=== PATIENT | male | born 1995 | race Caucasian/White ===

== ENCOUNTER 2024-05-15 13:44 | Emergency (ER) | payer BC, OTHER ==
--- NOTE | 2024-05-15 14:28 | RAD REPORT ---
EXAMINATION: XR RIGHT WRIST CLINICAL INDICATION: R wrist injury RIGHT TECHNIQUE: Multiple projections of the right wrist were obtained. COMPARISON: No prior exam. FINDINGS: Mildly comminuted intra-articular fracture of the distal radius is present. No dislocation is evident.
[2024-05-15] MEDS ORDERED: KETOROLAC 30 MG/ML INJ ONE (14:30)
--- NOTE | 2024-05-15 14:30 | EDPHYS ---
Physician Documentation [facility] Name: Marcos Tracey Age: 28 yrs Sex: Male : 1995 Arrival Date: 05/15/2024 Time: 13:44 Bed 9 Private MD: ED Physician Villa Muniz HPI: 05/15 14:00 This 28 yrs old Male presents to ER via Ambulatory with complaints of Fall ec2 Injury, Hand Injury - right. 14:00 Patient arrives today for right wrist pain after GLF. No other concerns.. ec2 Historical: - Allergies: 13:59 No Known Allergies; ld1 - PMHx: 13:59 None; ld1 - PSHx: 13:59 None; ld1 - Immunization history:: Adult Immunizations up to date. - Infectious Disease History:: Denies. - Social history:: Smoking status: Patient denies any tobacco usage or history of. ROS: 14:00 Constitutional: as per hpi ec2 Exam: 14:00 Constitutional: GEN: NAD Head: atraumatic Eyes: EOMI Ears: External ears are ec2 normal. CV: regular rate LUNGS: no respiratory distress ABD: non-distended SKIN: no evidence of rashes MSK: Right wrist with TTP, intact radial pulse, intact movement sensation of the hand. Vital Signs: 13:58 Pulse 86; Resp 18; Temp 97.2(TE); Pulse Ox 97% on R/A; Height 6 ft. 1 in. ; Pain 7/10; ld1 13:59 BP 136 / 71; Weight 181.44 kg; ld1 15:14 BP 132 / 68; Pulse 81; Resp 17; Temp 98.3; Pulse Ox 100% ; me1 13:58 Pain Scale: Adult ld1 MDM: 13:49 Medical Screening Exam initiated ec2 14:00 Data reviewed: vital signs, nurses notes. ED course: Patient arrives today for ec2 evaluation of a right wrist injury. Examination yields MSK findings as above. Will obtain wrist x-ray. Suspect contusion versus fracture.. 14:28 ED course: Wrist x-ray independently reviewed and interpreted by me, shows distal ec2 radius fracture, nondisplaced. Will place patient in sugar-tong splint have the patient follow-up with orthopedic surgery.. 05/15 13:59 Order name: Wrist Right 3 View XRAY; Complete Time: 14:29 ec2 05/15 14:27 Order name: Splint - Sugar Tong - Forearm; Complete Time: 15:03 ec2 05/15 14:27 Order name: Sling; Complete Time: 14:36 ec2 Administered Medications: 14:35 Drug: Ketorolac IM 30 mg IM once Route: IM; Site: left deltoid; me1 15:09 Follow up: Response: No adverse reaction; Pain is decreased me1 Disposition Summary: 05/15/24 14:30 Discharge Ordered Notes: Location: Home ec2 Condition: Stable ec2 Diagnosis - Fracture of lower end of radius ec2 Followup: ec2 - With: Rickey Maldonado MD - When: - Reason: Recheck today's complaints Discharge Instructions: - Discharge Summary Sheet ec2 - Wrist Fracture Treated With Immobilization, [id number] ec2 Forms: - Medication Reconciliation Form ec2 - Antibiotic Education ec2 - Prescription Opioid Use ec2 - Patient Portal Instructions ec2 - Leadership Thank You Letter ec2 Prescriptions: - acetaminophen-codeine 300-30 mg Oral tablet - take 1 tablet ORAL route every 4 hours as needed for pain; 15 tablet; Refills: ec2 0, Product Selection Permitted Signatures: Dispatcher [employer] Bryanna Sanon RN RN ld1 Colette Bryant RN RN me1 Villa Muniz MD MD ec2
--- NOTE | 2024-05-15 14:30 | ER ---
Nurse's Notes [facility] Name: Marcos Tracey Age: 28 yrs Sex: Male : 1995 Arrival Date: 05/15/2024 Time: 13:44 Bed 9 Private MD: Diagnosis: Fracture of lower end of radius Presentation: 05/15 13:58 Chief complaint: Patient states: Right wrist injury today. Coronavirus screen: At this ld1 time, the client does not indicate any symptoms associated with coronavirus-19. Ebola Screen: No symptoms or risks identified at this time. Initial Sepsis Screen: Does the patient meet any 2 criteria? No. Patient's initial sepsis screen is negative. Does the patient have a suspected source of infection? No. Patient's initial sepsis screen is negative. Risk Assessment: Do you want to hurt yourself or someone else? Patient reports no desire to harm self or others. Onset of symptoms was May 15, 2024. 13:58 Method Of Arrival: Ambulatory ld1 13:58 Acuity: WILLIAM 4 ld1 Triage Assessment: 13:59 General: Appears in no apparent distress. comfortable, Behavior is calm, cooperative. ld1 Pain: Complains of pain in right hand, dorsal aspect of right forearm, right wrist and palmar aspect of right forearm Pain does not radiate. Pain at worst was 7 out of 10 on a pain scale. Quality of pain is described as throbbing. EENT: No signs and/or symptoms were reported regarding the EENT system. Neuro: Level of Consciousness is awake, alert, obeys commands, Oriented to person, place, time, situation. Cardiovascular: Capillary refill < 3 seconds Patient's skin is warm and dry. Respiratory: Airway is patent Respiratory effort is even, unlabored. GI: Abdomen is round non-distended. : No signs and/or symptoms were reported regarding the genitourinary system. Historical: - Allergies: 13:59 No Known Allergies; ld1 - PMHx: 13:59 None; ld1 - PSHx: 13:59 None; ld1 - Immunization history:: Adult Immunizations up to date. - Infectious Disease History:: Denies. - Social history:: Smoking status: Patient denies any tobacco usage or history of. Screenin:30 [facility] ED Fall Risk Assessment (Adult) History of falling in the last 3 months, me1 including since admission No falls in past 3 months (0 pts) Confusion or Disorientation No (0 pts) Intoxicated or Sedated No (0 pts) Impaired Gait No (0 pts) Mobility Assist Device Used No (0 pt) Altered Elimination No (0 pt) Score/Fall Risk Level 0 - 2 = Low Risk Maintained a safe environment, Provided non-skid footwear, Hourly rounding (assess needs \T\ fall precautionary measures) done. Abuse screen: Denies threats or abuse. Nutritional screening: No deficits noted. Tuberculosis screening: No symptoms or risk factors identified. Assessment: 14:25 Reassessment: Patient and/or family updated on plan of care and expected duration. Pain ll1 level reassessed. 14:30 General: Appears uncomfortable, obese, well groomed, well developed, Behavior is calm, me1 cooperative, appropriate for age, Reports right wrist injury today. Pain: Complains of pain in right arm and right hand and palmar aspect of right forearm and right wrist and dorsal aspect of right forearm Pain does not radiate. Pain currently is 7 out of 10 on a pain scale. Quality of pain is described as sharp, Pain began suddenly, Is continuous. Neuro: Level of Consciousness is awake, alert, obeys commands, Oriented to person, place, time, situation, Appropriate for age. Cardiovascular: Patient's skin is warm and dry. Respiratory: Airway is patent Trachea midline Respiratory effort is even, unlabored, Respiratory pattern is regular, symmetrical. GI: No signs and/or symptoms were reported involving the gastrointestinal system. : No signs and/or symptoms were reported regarding the genitourinary system. EENT: No signs and/or symptoms were reported regarding the EENT system. Derm: Skin is intact, is healthy with good turgor, Skin is pink, warm \T\ dry. Musculoskeletal: Reports pain in right arm and right hand and palmar aspect of right forearm and right wrist and dorsal aspect of right forearm. Vital Signs: 13:58 Pulse 86; Resp 18; Temp 97.2(TE); Pulse Ox 97% on R/A; Height 6 ft. 1 in. ; Pain 7/10; ld1 13:59 BP 136 / 71; Weight 181.44 kg; ld1 15:14 BP 132 / 68; Pulse 81; Resp 17; Temp 98.3; Pulse Ox 100% ; me1 13:58 Pain Scale: Adult ld1 ED Course: 13:47 Patient arrived in ED. ra3 13:49 Villa Muniz MD is Attending Physician. ec2 13:59 Triage completed. ld1 13:59 Arm band placed on right wrist. ld1 14:19 Wrist Right 3 View XRAY In Process Unspecified. EDMS 14:25 Patient placed in an exam room, on a stretcher. ll1 14:25 Door closed. ll1 14:29 Colette Bryant, RN is Primary Nurse. me1 14:30 Rickey Maldonado MD is Referral Physician. ec2 14:30 Patient has correct armband on for positive identification. Bed in low position. Call me1 light in reach. Side rails up X2. Provided Education on: POC. Verbalized understanding.. 14:30 No provider procedures requiring assistance completed. Patient did not have IV access me1 during this emergency room visit. 15:03 Orthoglass splint: Sugar tong splint applied on right arm. Sling applied to right arm. em1 Administered Medications: 14:35 Drug: Ketorolac IM 30 mg IM once Route: IM; Site: left deltoid; me1 15:09 Follow up: Response: No adverse reaction; Pain is decreased me1 Medication: 14:30 VIS not applicable for this client. me1 Outcome: 14:30 Discharge ordered by . ec2 15:17 Discharged to home ambulatory, with family, me1 15:17 Condition: stable 15:17 Discharge instructions given to patient, family, Instructed on discharge instructions, follow up and referral plans. medication usage, Demonstrated understanding of instructions, follow-up care, medications, Prescriptions given X 1, 15:17 Patient left the ED. me1 Signatures: Dispatcher [employer] Chai Freeman em1 Zully Ruth RN RN 1 Bryanna Figueroa RN RN 1 Colette Bryant RN RN ma1 Villa Muniz MD MD ec2 Jaye Mcghee ra3
[2024-05-15 17:08] VITALS: BP 132/68; TEMP 98.3; O2SAT 100
== END 2024-05-15 15:17 | disposition home or self-care (01) ==
LOC: ER 13:44
PROC: 2W3CX1Z Immobilization of Right Lower Arm using Splint (ICD-10-PCS; principal; 2024-05-15)
DX: S52.501A Unspecified fracture of the lower end of right radius, initial encounter for closed fracture (principal)
CPT/HCPCS: 96372; 99284